=== PATIENT | female | born 2000 | race Caucasian/White ===

== ENCOUNTER 2023-10-02 20:56 | Day surgery (SDC) | payer OTHER ==
[2023-10-02 21:23] VITALS: BMI 28.4
[2023-10-02] MEDS ORDERED: hydrALAZINE 20 MG/ML VIAL SLOW IVP PRN (22:14)
[2023-10-02 22:30] LABS: Bilirubin 1+ (Negative); Blood, Urine Negative (Negative); Glucose, Urine (Dipstick) Normal (Negative); Ketone, Urine 15 mg/dL (Negative); Leukocyte 25 (Negative); Nitrite Negative (Negative); Protein, Urine (Dipstick) 15 mg/dl (Neg-Trace); Specific Gravity, Urine 1.015 (1.005-1.030)
[2023-10-02 22:48] LABS: Clarity Clear (Clear)
[2023-10-02 22:51] LABS: Bacteria/HPF 1+ HPF (None Seen); CAUTI Indications for Culture Pregnancy; Calcium Oxalate Crystals Rare HPF (None Seen); Mucous/LPF 1+ LPF (<2+); RBC/HPF 0-3 HPF (0-3); Squamous Epithelial 0-3 HPF (0-3); WBC/HPF 0-3 HPF (0-3)
[2023-10-02 22:52] LABS: Urine Culture Reflex Yes Yes
[2023-10-02] MEDS: Cyclobenzaprine 10 MG TAB PO SCH (23:30)
[2023-10-02] MEDS: Acetaminophen 500 MG TAB PO SCH (23:30)
[2023-10-02] MEDS: Nitrofurantoin Monohyd/M-Cryst 100 MG CAP PO SCH (23:53)
== END 2023-10-03 00:35 | disposition home or self-care (01) ==
LOC: CSHLD/OP 20:56
PROVIDERS: ATTEND Family Medicine
DX: O47.03 False labor before 37 completed weeks of gestation, third trimester (principal); O99.513 Diseases of the respiratory system complicating pregnancy, third trimester; J45.909 Unspecified asthma, uncomplicated; O99.353 Diseases of the nervous system complicating pregnancy, third trimester; G43.909 Migraine, unspecified, not intractable, without status migrainosus; G40.909 Epilepsy, unspecified, not intractable, without status epilepticus; Z3A.33 33 weeks gestation of pregnancy; Z88.0 Allergy status to penicillin; Z88.1 Allergy status to other antibiotic agents; Z79.899 Other long term (current) drug therapy
CPT/HCPCS: 76817; 81001; 87086; 99284